=== PATIENT | male | born 1955 | race Caucasian/White ===

== ENCOUNTER 2024-03-20 06:38 | Outpatient (CLI) | payer MEDICARE, SELFPAY ==
[2024-03-20] VITALS (10 sets, daily range): BP systolic 115–148; BP diastolic 68–99; PULSE 81–122; RESP 15–22; TEMP 36.8; O2SAT 89–99
[2024-03-20] MEDS: SODIUM CHLORIDE 0.9% 1000 ML 500 ML 100 ML IV (07:30)
[2024-03-20] MEDS: MIDAZOLAM INJ 1 MG/ML VIAL 2 ML 4 MG IV (08:20)
[2024-03-20] MEDS: fentaNYL CIT INJ 50 mCg/ML AMP 2ML 100 MCG IVP (08:20)
--- NOTE | 2024-03-20 08:38 | EKG_ITS ---
[facility] Test Date: 2024-03-20 Pat Name: TONY KANG Department: Room: - Gender: Male [employer]: : 1955 Requested By: Catarino Lopez Order Number: [id number] Reading MD: Catarino Lopez Measurements Intervals [place] Rate: 79 P: 51 FL: 188 QRS: 3 QRSD: 100 T: 32 QT: 376 QTc: 431 Interpretive Statements SINUS RHYTHM INFERIOR MYOCARDIAL INFARCTION , OF INDETERMINATE AGE Compared to ECG 11/24/2017 15:57:53 Myocardial infarct finding now present Sinus tachycardia no longer present T-wave abnormality no longer present /store/S0/[id number]/ecg/[id number].pdf
--- NOTE | 2024-03-20 14:17 | ESOP_ITS ---
RE: TONY KANG : 1955 PROCEDURE PERFORMED: 1. Synchronized cardioversion. 2. Conscious sedation, one hour duration. POSTPROCEDURE DIAGNOSIS: Successful synchronized cardioversion. DIAGNOSIS: Atrial flutter fibrillation, symptomatic. HISTORY AND INDICATIONS: The patient is a 68-year-old male with history CAD, bypass surgery six years ago. He has recurrent shortness of palpitations, atrial flutter fibrillation, difficult rate control, symptomatic. Synchronized cardioversion recommended because his amiodarone has been ineffective in controlling his heart rate. DESCRIPTION OF PROCEDURE: The patient brought to recovery area, given 2 mg Versed. Additional 2 mg of Versed for sedation and 100 mcg of fentanyl was given. Synchronized cardioversion was successfully performed using 100 joules of energy. He was converted to normal sinus rhythm successfully with 100 joules of energy. Back to normal sinus rhythm. FINDINGS: No complications. SUMMARY OF FINDINGS: Successful synchronized cardioversion DT: 13:23:57 TT: 14:15:00 Ref: [id number] - TID: [id number] MTDD
== END 2024-03-20 09:45 | disposition home or self-care (01) ==
PROVIDERS: PCP Physician Assistant; Referring Provider Internal Medicine Cardiovascular Disease; Visit Provider Internal Medicine Cardiovascular Disease
PROC: 5A2204Z Restoration of Cardiac Rhythm, Single (ICD-10-PCS; CPT 92960; principal; 2024-03-20 07:30)
DX: I48.91 Unspecified atrial fibrillation (principal); I25.10 Atherosclerotic heart disease of native coronary artery without angina pectoris; I48.92 Unspecified atrial flutter; Z01.810 Encounter for preprocedural cardiovascular examination
CPT/HCPCS: 92960; 93005; J2250; J3010; J7030